=== PATIENT | female | born 1990 | race Hispanic/Latino ===

== ENCOUNTER → 2025-06-06 09:27 | Outpatient (CLI) | payer SELFPAY ==
[2025-06-06 11:58] LABS: Urine N gonorrhoeae NOT DETECTED
[2025-06-06 12:57] LABS: Urine Chlamydia NOT DETECTED
== END ==
PROVIDERS: Visit Provider Nurse Practitioner Family
DX: N89.8 Other specified noninflammatory disorders of vagina (principal); Z20.2 Contact with and (suspected) exposure to infections with a predominantly sexual mode of transmission
CPT/HCPCS: 87210; 87491; 87591